=== PATIENT | male | born 1975 | race Caucasian/White ===

== ENCOUNTER 2017-07-13 08:38 | Inpatient (IN) | payer OTHER ==
[2017-07-13] MEDS: MORPHINE SULFATE 4 MG/ML DISP.SYRIN. IV (09:20)
[2017-07-13] MEDS: ONDANSETRON PF 4 MG/2 ML VIAL. IV (09:20)
[2017-07-13 09:29] LABS: BASO % 0 % (0-3); EOS # 0.1 x10^3/uL (0.0-0.7); EOS % 1 % (0-3); HEMATOCRIT 25.8 % (39.0-53.0); LYMPH # 0.6 x10^3/uL (1.0-4.8); LYMPH % 6 % (24-48); MEAN CORPUSCULAR HEMOGLOBIN 30 pg (25-35); MEAN CORPUSCULAR HGB CONC 35 g/dL (31-37); MEAN CORPUSCULAR VOLUME 86 fL (79-100); MONO # 0.8 x10^3/uL (0.0-1.1); MONO % 7 % (0-9); NEUT # 8.8 x10^3uL (1.8-7.7); NEUT % 85 % (31-73); PLATELET COUNT 590 x10^3/uL (140-400); RED BLOOD COUNT 2.99 x10^6/uL (4.30-5.70); RED CELL DISTRIBUTION WIDTH 15.1 % (11.5-14.5); WHITE BLOOD COUNT 10.3 x10^3/uL (4.0-11.0)
[2017-07-13 09:31] LABS: ADD MAN DIFF? YES; ANION GAP 9 (6-14); BLOOD UREA NITROGEN 13 mg/dL (8-26); BUN/CREATININE RATIO 13 (6-20); CARBON DIOXIDE 30 mmol/L (21-32); CHLORIDE 101 mmol/L (98-107); GFR 83.2; GLUCOSE 110 mg/dL (70-99); POTASSIUM 3.4 mmol/L (3.5-5.1); SODIUM 140 mmol/L (136-145)
[2017-07-13 09:36] LABS: ALBUMIN 1.8 g/dL (3.4-5.0); ALBUMIN/GLOBULIN RATIO 0.3 (1.0-1.7); ALK PHOS 144 U/L (46-116); ALT (SGPT) 24 U/L (16-63); AST (SGOT) 23 U/L (15-37); LIPASE 175 U/L (73-393); TOTAL BILIRUBIN 1.1 mg/dL (0.2-1.0)
[2017-07-13 09:39] LABS: TROPONINI < 0.017 ng/mL (0.000-0.055)
[2017-07-13 09:42] LABS: NT-PRO BNP 961 pg/mL (0-124)
[2017-07-13] MEDS ORDERED: CONTRAST GIVEN MC (09:45)
[2017-07-13] MEDS: IOHEXOL 300 MG/ML 100ML VIAL. IV (09:52)
[2017-07-13 10:03] LABS: D-DIMER 5.89 ug/mlFEU (0.00-0.50)
[2017-07-13 10:36] LABS: % BANDS 1 % (0-9); % EOS 2 % (0-5); % LYMPHS 6 % (24-48); % MONOS 8 % (0-10); % SEGS 83 % (35-66)
[2017-07-13 10:37] LABS: PLT ESTIMATE ADEQUATE (ADEQUATE)
[2017-07-13] MEDS: FUROSEMIDE 40 MG/4 ML VIAL. IVP (10:47)
[2017-07-13] MEDS ORDERED: ONDANSETRON PF 4 MG/2 ML VIAL. IV (12:00)
[2017-07-13] MEDS ORDERED: POTASSIUM CHLORIDE 20MEQ 50 ML IV (12:00)
[2017-07-13] MEDS: MORPHINE SULFATE 2 MG/ML DISP.SYRIN. IV ×6 (12:27→23:53)
[2017-07-13] MEDS: DEXTROSE 5% IV (12:39)
[2017-07-13] MEDS: POTASSIUM CHLORIDE IV (12:39)
[2017-07-13] MEDS ORDERED: PNEUMOCOCCAL VAX SCREEN BY RX. MC (13:45)
[2017-07-14] MEDS: MORPHINE SULFATE 2 MG/ML DISP.SYRIN. IV ×7 (02:11→15:47)
[2017-07-14 05:15] LABS: ADD MAN DIFF? NO
[2017-07-14 05:29] LABS: BASO % 0 % (0-3); EOS # 0.2 x10^3/uL (0.0-0.7); EOS % 2 % (0-3); HEMATOCRIT 23.7 % (39.0-53.0); HEMOGLOBIN 7.9 g/dL (13.0-17.5); LYMPH # 0.5 x10^3/uL (1.0-4.8); LYMPH % 6 % (24-48); MEAN CORPUSCULAR HEMOGLOBIN 29 pg (25-35); MEAN CORPUSCULAR HGB CONC 33 g/dL (31-37); MEAN CORPUSCULAR VOLUME 88 fL (79-100); MONO # 0.7 x10^3/uL (0.0-1.1); MONO % 8 % (0-9); NEUT % 85 % (31-73); PLATELET COUNT 538 x10^3/uL (140-400); RED CELL DISTRIBUTION WIDTH 15.2 % (11.5-14.5); WHITE BLOOD COUNT 9.4 x10^3/uL (4.0-11.0)
[2017-07-14 05:57] LABS: ANION GAP 8 (6-14); BLOOD UREA NITROGEN 15 mg/dL (8-26); CALCIUM 7.7 mg/dL (8.5-10.1); CARBON DIOXIDE 30 mmol/L (21-32); CHLORIDE 103 mmol/L (98-107); CREATININE 1.1 mg/dL (0.7-1.3); GFR 74.1; GLUCOSE 117 mg/dL (70-99); POTASSIUM 3.7 mmol/L (3.5-5.1); SODIUM 141 mmol/L (136-145)
[2017-07-14] MEDS: FUROSEMIDE 20 MG/2 ML VIAL. IVP (08:51)
[2017-07-14] MEDS: POTASSIUM CHLORIDE 20 MEQ TABLET.ER. PO (08:53)
[2017-07-14] MEDS: ACETAMINOPHEN 325 MG TABLET. PO (13:15)
[2017-07-14] MEDS: ONDANSETRON PF 4 MG/2 ML VIAL. IV (13:17)
[2017-07-14] MEDS: HYDROcodone/APAP 5/325MG 1 TAB TABLET PO ×2 (17:53→22:12)
[2017-07-15] MEDS: HYDROcodone/APAP 5/325MG 1 TAB TABLET PO ×5 (02:01→22:08)
[2017-07-15 04:55] LABS: HEMATOCRIT 23.9 % (39.0-53.0); HEMOGLOBIN 7.9 g/dL (13.0-17.5); MEAN CORPUSCULAR HGB CONC 33 g/dL (31-37)
[2017-07-15 06:00] LABS: ANION GAP 8 (6-14); BLOOD UREA NITROGEN 15 mg/dL (8-26); CALCIUM 7.8 mg/dL (8.5-10.1); CARBON DIOXIDE 31 mmol/L (21-32); CHLORIDE 101 mmol/L (98-107); GFR 82.8; GLUCOSE 93 mg/dL (70-99); POTASSIUM 4.6 mmol/L (3.5-5.1); SODIUM 140 mmol/L (136-145)
[2017-07-15] MEDS: POTASSIUM CHLORIDE 20 MEQ TABLET.ER. PO (10:21)
[2017-07-15] MEDS: FUROSEMIDE 20 MG TABLET PO (10:22)
[2017-07-15] MEDS: MAGNESIUM HYDROXIDE 2,400 MG/30 ML ORAL.SUSP. PO ×2 (12:46→16:41)
[2017-07-15] MEDS: oxyCODONE IR 5 MG TABLET PO ×2 (12:46→19:20)
[2017-07-15] MEDS ORDERED: POLYETHYLENE GLYCOL 3350 17 GM PACKET. PO (16:45)
[2017-07-15] MEDS: DOCUSATE SODIUM 100 MG CAPSULE. PO (17:00)
[2017-07-15] MEDS: POLYETHYLENE GLYCOL 3350 17 GM PACKET. PO (17:00)
[2017-07-16] MEDS: oxyCODONE IR 5 MG TABLET PO ×4 (02:30→20:18)
[2017-07-16] MEDS: HYDROcodone/APAP 5/325MG 1 TAB TABLET PO ×4 (04:26→22:57)
[2017-07-16 05:53] LABS: ADD MAN DIFF? NO
[2017-07-16 06:19] LABS: INR 1.4 (0.8-1.1); PROTHROMBIN TIME PATIENT 16.4 SEC (11.7-14.0)
[2017-07-16 06:48] LABS: ALBUMIN 1.5 g/dL (3.4-5.0); ALBUMIN/GLOBULIN RATIO 0.3 (1.0-1.7); ALK PHOS 160 U/L (46-116); ALT (SGPT) 23 U/L (16-63); ANION GAP 8 (6-14); AST (SGOT) 29 U/L (15-37); BLOOD UREA NITROGEN 15 mg/dL (8-26); BUN/CREATININE RATIO 15 (6-20); CALCIUM 7.5 mg/dL (8.5-10.1); CARBON DIOXIDE 25 mmol/L (21-32); CHLORIDE 99 mmol/L (98-107); GFR 82.8; GLUCOSE 98 mg/dL (70-99); POTASSIUM 4.8 mmol/L (3.5-5.1); SODIUM 132 mmol/L (136-145); TOTAL BILIRUBIN 0.9 mg/dL (0.2-1.0)
[2017-07-16 06:51] LABS: BASO % 0 % (0-3); EOS # 0.1 x10^3/uL (0.0-0.7); EOS % 1 % (0-3); HEMATOCRIT 24.6 % (39.0-53.0); LYMPH # 0.9 x10^3/uL (1.0-4.8); LYMPH % 8 % (24-48); MEAN CORPUSCULAR HEMOGLOBIN 28 pg (25-35); MEAN CORPUSCULAR HGB CONC 32 g/dL (31-37); MEAN CORPUSCULAR VOLUME 86 fL (79-100); MONO # 1.2 x10^3/uL (0.0-1.1); MONO % 10 % (0-9); NEUT % 80 % (31-73); PLATELET COUNT 682 x10^3/uL (140-400); RED BLOOD COUNT 2.87 x10^6/uL (4.30-5.70); RED CELL DISTRIBUTION WIDTH 15.5 % (11.5-14.5); WHITE BLOOD COUNT 11.2 x10^3/uL (4.0-11.0)
[2017-07-16] MEDS: FUROSEMIDE 20 MG TABLET PO (08:14)
[2017-07-16] MEDS: DOCUSATE SODIUM 100 MG CAPSULE. PO (08:14)
[2017-07-16] MEDS: POLYETHYLENE GLYCOL 3350 17 GM PACKET. PO (08:14)
[2017-07-16] MEDS: POTASSIUM CHLORIDE 20 MEQ TABLET.ER. PO (08:14)
[2017-07-16] MEDS: MAGNESIUM HYDROXIDE 2,400 MG/30 ML ORAL.SUSP. PO (13:57)
[2017-07-16] MEDS: CITALOPRAM 20 MG TABLET. PO (15:15)
[2017-07-16] MEDS: LIDOCAINE 2%/EPI 1:100,000 20 ML VIAL. INJ (22:30)
[2017-07-17 00:01] LABS: TYPE AND SCREEN 1 1
[2017-07-17] MEDS: oxyCODONE IR 5 MG TABLET PO ×3 (04:54→21:07)
[2017-07-17 05:14] LABS: ADD MAN DIFF? NO
[2017-07-17 05:23] LABS: BASO % 0 % (0-3); EOS # 0.1 x10^3/uL (0.0-0.7); EOS % 1 % (0-3); HEMATOCRIT 22.9 % (39.0-53.0); HEMOGLOBIN 7.6 g/dL (13.0-17.5); LYMPH # 0.8 x10^3/uL (1.0-4.8); LYMPH % 8 % (24-48); MEAN CORPUSCULAR HEMOGLOBIN 29 pg (25-35); MEAN CORPUSCULAR HGB CONC 33 g/dL (31-37); MEAN CORPUSCULAR VOLUME 86 fL (79-100); MONO # 1.2 x10^3/uL (0.0-1.1); MONO % 11 % (0-9); NEUT # 8.1 x10^3uL (1.8-7.7); NEUT % 79 % (31-73); PLATELET COUNT 662 x10^3/uL (140-400); RED BLOOD COUNT 2.65 x10^6/uL (4.30-5.70); RED CELL DISTRIBUTION WIDTH 15.9 % (11.5-14.5); WHITE BLOOD COUNT 10.2 x10^3/uL (4.0-11.0)
[2017-07-17 05:46] LABS: ALBUMIN 1.6 g/dL (3.4-5.0); ALBUMIN/GLOBULIN RATIO 0.3 (1.0-1.7); ALK PHOS 171 U/L (46-116); ALT (SGPT) 24 U/L (16-63); ANION GAP 8 (6-14); AST (SGOT) 32 U/L (15-37); BLOOD UREA NITROGEN 16 mg/dL (8-26); BUN/CREATININE RATIO 16 (6-20); CALCIUM 8.2 mg/dL (8.5-10.1); CARBON DIOXIDE 28 mmol/L (21-32); CHLORIDE 98 mmol/L (98-107); GFR 82.8; GLUCOSE 92 mg/dL (70-99); POTASSIUM 4.8 mmol/L (3.5-5.1); SODIUM 134 mmol/L (136-145); TOTAL BILIRUBIN 0.9 mg/dL (0.2-1.0); TOTAL PROTEIN 7.2 g/dL (6.4-8.2)
[2017-07-17] MEDS: FUROSEMIDE 20 MG TABLET PO (08:56)
[2017-07-17] MEDS: CITALOPRAM 20 MG TABLET. PO (08:56)
[2017-07-17] MEDS: POTASSIUM CHLORIDE 20 MEQ TABLET.ER. PO (08:56)
[2017-07-17] MEDS: DOCUSATE SODIUM 100 MG CAPSULE. PO (08:56)
[2017-07-17] MEDS: HYDROcodone/APAP 5/325MG 1 TAB TABLET PO ×4 (08:56→22:09)
[2017-07-17] MEDS: POLYETHYLENE GLYCOL 3350 17 GM PACKET. PO (09:00)
[2017-07-17] MEDS: ONDANSETRON PF 4 MG/2 ML VIAL. IV (12:20)
[2017-07-17] MEDS ORDERED: CONTRAST GIVEN MC (13:00)
[2017-07-17] MEDS: FERROUS SULFATE 325 MG TABLET. PO (13:24)
[2017-07-17] MEDS: PHYTONADIONE 10 MG/ML ORAL SOLUTION. PO (13:25)
[2017-07-17] MEDS: IOHEXOL 300 MG/ML 100ML VIAL. IV (14:58)
[2017-07-18] MEDS: HYDROcodone/APAP 5/325MG 1 TAB TABLET PO ×4 (02:56→21:07)
[2017-07-18] MEDS: oxyCODONE IR 5 MG TABLET PO ×3 (04:07→17:58)
[2017-07-18 05:32] LABS: INR 1.3 (0.8-1.1)
[2017-07-18 05:47] LABS: ADD MAN DIFF? NO
[2017-07-18 06:04] LABS: ALBUMIN 1.6 g/dL (3.4-5.0); ALBUMIN/GLOBULIN RATIO 0.3 (1.0-1.7); ALK PHOS 169 U/L (46-116); ALT (SGPT) 29 U/L (16-63); ANION GAP 8 (6-14); AST (SGOT) 53 U/L (15-37); BLOOD UREA NITROGEN 14 mg/dL (8-26); BUN/CREATININE RATIO 16 (6-20); CALCIUM 7.7 mg/dL (8.5-10.1); CARBON DIOXIDE 28 mmol/L (21-32); CHLORIDE 98 mmol/L (98-107); CREATININE 0.9 mg/dL (0.7-1.3); GFR 93.5; GLUCOSE 97 mg/dL (70-99); POTASSIUM 5.2 mmol/L (3.5-5.1); SODIUM 134 mmol/L (136-145); TOTAL BILIRUBIN 0.8 mg/dL (0.2-1.0); TOTAL PROTEIN 6.8 g/dL (6.4-8.2)
[2017-07-18] MEDS: POTASSIUM CHLORIDE 20 MEQ TABLET.ER. PO (08:00)
[2017-07-18 08:20] LABS: BASO # 0.3 x10^3/uL (0.0-0.2); BASO % 3 % (0-3); EOS # 0.1 x10^3/uL (0.0-0.7); EOS % 1 % (0-3); HEMATOCRIT 23.5 % (39.0-53.0); HEMOGLOBIN 7.7 g/dL (13.0-17.5); LYMPH # 0.8 x10^3/uL (1.0-4.8); LYMPH % 8 % (24-48); MEAN CORPUSCULAR HEMOGLOBIN 29 pg (25-35); MEAN CORPUSCULAR HGB CONC 33 g/dL (31-37); MEAN CORPUSCULAR VOLUME 88 fL (79-100); MONO # 1.1 x10^3/uL (0.0-1.1); MONO % 11 % (0-9); NEUT # 7.6 x10^3uL (1.8-7.7); NEUT % 77 % (31-73); PLATELET COUNT 665 x10^3/uL (140-400); RED BLOOD COUNT 2.67 x10^6/uL (4.30-5.70); RED CELL DISTRIBUTION WIDTH 16.3 % (11.5-14.5); WHITE BLOOD COUNT 9.9 x10^3/uL (4.0-11.0)
[2017-07-18] MEDS: DOCUSATE SODIUM 100 MG CAPSULE. PO (09:00)
[2017-07-18] MEDS: FUROSEMIDE 20 MG TABLET PO (09:00)
[2017-07-18] MEDS: POLYETHYLENE GLYCOL 3350 17 GM PACKET. PO (09:00)
[2017-07-18] MEDS: IV NORMAL SALINE 500ML BAG 500 ML IV (10:15)
[2017-07-18] MEDS: CITALOPRAM 20 MG TABLET. PO (10:29)
[2017-07-18] MEDS: FERROUS SULFATE 325 MG TABLET. PO (10:29)
[2017-07-18] MEDS: IV NORMAL SALINE 1000ML BAG 1,000 ML IV ×2 (11:00→21:07)
[2017-07-18] MEDS ORDERED: LIDOCAINE WITH 8.4% SOD BICARB 3 ML DISP.SYRIN. IJ (14:02)
[2017-07-18] MEDS ORDERED: MIDAZOLAM HCL/PF 2 MG/2 ML VIAL. (14:51)
[2017-07-18] MEDS ORDERED: fentaNYL PF VIAL 100 MCG/2 ML VIAL (14:52)
[2017-07-18] MEDS ORDERED: FLUMAZENIL 0.5 MG/5 ML VIAL. IV (14:52)
[2017-07-18] MEDS ORDERED: NALOXONE 0.4 MG/ML VIAL. (14:52)
[2017-07-18] MEDS: fentaNYL PF VIAL 100 MCG/2 ML VIAL IV (15:21)
[2017-07-18] MEDS: LIDOCAINE WITH 8.4% SOD BICARB 3 ML DISP.SYRIN. IJ (15:22)
[2017-07-18] MEDS: MIDAZOLAM HCL/PF 2 MG/2 ML VIAL. IV (15:22)
[2017-07-18 16:44] LABS: ADD MAN DIFF? NO
[2017-07-18 16:50] LABS: BASO % 0 % (0-3); EOS # 0.1 x10^3/uL (0.0-0.7); EOS % 1 % (0-3); HEMATOCRIT 22.7 % (39.0-53.0); HEMOGLOBIN 7.5 g/dL (13.0-17.5); LYMPH # 0.6 x10^3/uL (1.0-4.8); LYMPH % 6 % (24-48); MEAN CORPUSCULAR HEMOGLOBIN 28 pg (25-35); MEAN CORPUSCULAR HGB CONC 33 g/dL (31-37); MEAN CORPUSCULAR VOLUME 85 fL (79-100); MONO # 1.2 x10^3/uL (0.0-1.1); MONO % 12 % (0-9); NEUT % 81 % (31-73); PLATELET COUNT 639 x10^3/uL (140-400); RED BLOOD COUNT 2.67 x10^6/uL (4.30-5.70); WHITE BLOOD COUNT 9.8 x10^3/uL (4.0-11.0)
[2017-07-18 17:25] LABS: INR 1.3 (0.8-1.1); PROTHROMBIN TIME PATIENT 15.7 SEC (11.7-14.0)
[2017-07-18 18:49] LABS: IMMEDIATE SPIN CROSSMATCH 1
[2017-07-18 20:08] LABS: IMMEDIATE SPIN CROSSMATCH 1
[2017-07-19] MEDS: oxyCODONE IR 5 MG TABLET PO ×4 (00:14→22:59)
[2017-07-19] MEDS: HYDROcodone/APAP 5/325MG 1 TAB TABLET PO ×5 (01:44→20:17)
[2017-07-19 04:19] LABS: HEMATOCRIT 21.6 % (39.0-53.0); HEMOGLOBIN 7.1 g/dL (13.0-17.5); MEAN CORPUSCULAR HGB CONC 33 g/dL (31-37)
[2017-07-19 04:53] LABS: ANION GAP 3 (6-14); BLOOD UREA NITROGEN 10 mg/dL (8-26); CALCIUM 7.1 mg/dL (8.5-10.1); CARBON DIOXIDE 29 mmol/L (21-32); CHLORIDE 100 mmol/L (98-107); CREATININE 0.9 mg/dL (0.7-1.3); GFR 93.5; GLUCOSE 112 mg/dL (70-99); POTASSIUM 4.1 mmol/L (3.5-5.1); SODIUM 132 mmol/L (136-145)
[2017-07-19] MEDS: IV NORMAL SALINE 1000ML BAG 1,000 ML IV ×3 (06:19→22:59)
[2017-07-19] MEDS: CITALOPRAM 20 MG TABLET. PO (08:26)
[2017-07-19] MEDS: FERROUS SULFATE 325 MG TABLET. PO (08:26)
[2017-07-19] MEDS: FUROSEMIDE 20 MG TABLET PO (08:26)
[2017-07-19] MEDS: DOCUSATE SODIUM 100 MG CAPSULE. PO (08:27)
[2017-07-19] MEDS: POLYETHYLENE GLYCOL 3350 17 GM PACKET. PO (08:27)
[2017-07-19] MEDS: POTASSIUM CHLORIDE 20 MEQ TABLET.ER. PO (08:27)
[2017-07-19] MEDS: IV NORMAL SALINE 500ML BAG 500 ML IV (09:00)
[2017-07-19 12:17] LABS: BACTERIA,URINE FEW /HPF (0-FEW); BILIRUBIN,URINE NEGATIVE (NEG); CLARITY,URINE CLEAR; COLOR,URINE YELLOW; GLUCOSE,URINE NEGATIVE (NEG); NITRITE,URINE NEGATIVE (NEG); PH,URINE 5.5; PROTEIN,URINE NEGATIVE (NEG-TRACE); RBC,URINE RARE /HPF (0-2); WBC,URINE RARE /HPF (0-4)
[2017-07-20] MEDS: HYDROcodone/APAP 5/325MG 1 TAB TABLET PO ×5 (04:46→21:58)
[2017-07-20 05:38] LABS: HEMATOCRIT 22.9 % (39.0-53.0); HEMOGLOBIN 7.7 g/dL (13.0-17.5); MEAN CORPUSCULAR HGB CONC 34 g/dL (31-37)
[2017-07-20] MEDS: oxyCODONE IR 5 MG TABLET PO ×3 (06:08→17:15)
[2017-07-20 06:16] LABS: ALBUMIN 1.5 g/dL (3.4-5.0); ALBUMIN/GLOBULIN RATIO 0.3 (1.0-1.7); ALK PHOS 154 U/L (46-116); ALT (SGPT) 40 U/L (16-63); ANION GAP 4 (6-14); AST (SGOT) 56 U/L (15-37); BLOOD UREA NITROGEN 7 mg/dL (8-26); BUN/CREATININE RATIO 9 (6-20); CALCIUM 7.7 mg/dL (8.5-10.1); CARBON DIOXIDE 33 mmol/L (21-32); CHLORIDE 100 mmol/L (98-107); CREATININE 0.8 mg/dL (0.7-1.3); GFR 107.1; GLUCOSE 102 mg/dL (70-99); POTASSIUM 5.3 mmol/L (3.5-5.1); SODIUM 137 mmol/L (136-145); TOTAL BILIRUBIN 0.6 mg/dL (0.2-1.0); TOTAL PROTEIN 6.6 g/dL (6.4-8.2)
[2017-07-20] MEDS: POTASSIUM CHLORIDE 20 MEQ TABLET.ER. PO (08:00)
[2017-07-20] MEDS: FERROUS SULFATE 325 MG TABLET. PO (08:41)
[2017-07-20] MEDS: CITALOPRAM 20 MG TABLET. PO (08:41)
[2017-07-20] MEDS: DOCUSATE SODIUM 100 MG CAPSULE. PO (08:42)
[2017-07-20] MEDS: POLYETHYLENE GLYCOL 3350 17 GM PACKET. PO (08:42)
[2017-07-20] MEDS: IV NORMAL SALINE 1000ML BAG 1,000 ML IV ×2 (08:44→21:59)
[2017-07-20] MEDS: FUROSEMIDE 40 MG TABLET. PO ×2 (14:00→14:34)
[2017-07-21] MEDS: oxyCODONE IR 5 MG TABLET PO ×3 (00:35→17:45)
[2017-07-21] MEDS: HYDROcodone/APAP 5/325MG 1 TAB TABLET PO ×3 (04:41→19:54)
[2017-07-21] MEDS: IV NORMAL SALINE 1000ML BAG 1,000 ML IV ×2 (04:42→16:04)
[2017-07-21 06:39] LABS: ANION GAP 6 (6-14); BLOOD UREA NITROGEN 5 mg/dL (8-26); CALCIUM 7.4 mg/dL (8.5-10.1); CARBON DIOXIDE 29 mmol/L (21-32); CHLORIDE 98 mmol/L (98-107); CREATININE 0.7 mg/dL (0.7-1.3); GFR 124.9; GLUCOSE 84 mg/dL (70-99); POTASSIUM 4.3 mmol/L (3.5-5.1); SODIUM 133 mmol/L (136-145)
[2017-07-21] MEDS: POLYETHYLENE GLYCOL 3350 17 GM PACKET. PO (07:34)
[2017-07-21 07:35] LABS: ALBUMIN 1.5 g/dL (3.4-5.0); ANION GAP 7 (6-14); BLOOD UREA NITROGEN 5 mg/dL (8-26); CALCIUM 7.2 mg/dL (8.5-10.1); CARBON DIOXIDE 28 mmol/L (21-32); CHLORIDE 98 mmol/L (98-107); CREATININE 0.7 mg/dL (0.7-1.3); GFR 124.9; GLUCOSE 85 mg/dL (70-99); PHOSPHORUS 4.6 mg/dL (2.6-4.7); POTASSIUM 4.9 mmol/L (3.5-5.1); SODIUM 133 mmol/L (136-145)
[2017-07-21] MEDS: DOCUSATE SODIUM 100 MG CAPSULE. PO (08:48)
[2017-07-21] MEDS: FUROSEMIDE 40 MG TABLET. PO ×2 (08:48→14:11)
[2017-07-21] MEDS: CITALOPRAM 20 MG TABLET. PO (08:48)
[2017-07-21] MEDS: FERROUS SULFATE 325 MG TABLET. PO (08:48)
[2017-07-21] MEDS ORDERED: LOPERAMIDE 2 MG CAPSULE PO (10:30)
[2017-07-21] MEDS ORDERED: PIP/TAZO PER PHARMACY MC (15:15)
[2017-07-21] MEDS: PIPERACILLIN/TAZOBACTAM 3.375 GM in IV NORMAL SALINE 50ML 50 ML IV (16:04)
[2017-07-21] MEDS: LACTOBACILLUS RHAMNOSUS GG 1 CAPSULE. PO (19:54)
[2017-07-22] MEDS: PIPERACILLIN/TAZOBACTAM 3.375 GM in IV NORMAL SALINE 50ML 50 ML IV ×4 (00:07→18:14)
[2017-07-22] MEDS: oxyCODONE IR 5 MG TABLET PO ×4 (00:07→21:02)
[2017-07-22] MEDS: IV NORMAL SALINE 1000ML BAG 1,000 ML IV ×3 (03:15→21:03)
[2017-07-22] MEDS: HYDROcodone/APAP 5/325MG 1 TAB TABLET PO ×3 (05:35→18:52)
[2017-07-22 07:48] LABS: HEMATOCRIT 23.8 % (39.0-53.0); MEAN CORPUSCULAR HGB CONC 34 g/dL (31-37)
[2017-07-22 08:10] LABS: ANION GAP 6 (6-14); BLOOD UREA NITROGEN 4 mg/dL (8-26); CALCIUM 7.5 mg/dL (8.5-10.1); CARBON DIOXIDE 30 mmol/L (21-32); CHLORIDE 97 mmol/L (98-107); CREATININE 0.8 mg/dL (0.7-1.3); GFR 107.1; GLUCOSE 108 mg/dL (70-99); POTASSIUM 3.8 mmol/L (3.5-5.1); SODIUM 133 mmol/L (136-145)
[2017-07-22] MEDS: POLYETHYLENE GLYCOL 3350 17 GM PACKET. PO (09:00)
[2017-07-22] MEDS: FERROUS SULFATE 325 MG TABLET. PO (09:17)
[2017-07-22] MEDS: CITALOPRAM 20 MG TABLET. PO (09:17)
[2017-07-22] MEDS: FUROSEMIDE 40 MG TABLET. PO ×2 (09:17→14:36)
[2017-07-22] MEDS: DOCUSATE SODIUM 100 MG CAPSULE. PO (09:17)
[2017-07-22] MEDS: LACTOBACILLUS RHAMNOSUS GG 1 CAPSULE. PO ×2 (09:17→21:02)
[2017-07-23] MEDS: HYDROcodone/APAP 5/325MG 1 TAB TABLET PO ×5 (00:20→18:50)
[2017-07-23] MEDS: PIPERACILLIN/TAZOBACTAM 3.375 GM in IV NORMAL SALINE 50ML 50 ML IV ×4 (00:20→18:26)
[2017-07-23 05:45] LABS: HEMATOCRIT 24.6 % (39.0-53.0); HEMOGLOBIN 8.1 g/dL (13.0-17.5); MEAN CORPUSCULAR HEMOGLOBIN 27 pg (25-35); MEAN CORPUSCULAR HGB CONC 33 g/dL (31-37); MEAN CORPUSCULAR VOLUME 83 fL (79-100); PLATELET COUNT 600 x10^3/uL (140-400); RED BLOOD COUNT 2.96 x10^6/uL (4.30-5.70); RED CELL DISTRIBUTION WIDTH 16.2 % (11.5-14.5); WHITE BLOOD COUNT 10.2 x10^3/uL (4.0-11.0)
[2017-07-23 06:12] LABS: ALBUMIN 1.5 g/dL (3.4-5.0); ALBUMIN/GLOBULIN RATIO 0.3 (1.0-1.7); ALK PHOS 142 U/L (46-116); ALT (SGPT) 26 U/L (16-63); ANION GAP 6 (6-14); AST (SGOT) 28 U/L (15-37); BLOOD UREA NITROGEN 7 mg/dL (8-26); BUN/CREATININE RATIO 9 (6-20); CALCIUM 7.4 mg/dL (8.5-10.1); CARBON DIOXIDE 28 mmol/L (21-32); CHLORIDE 100 mmol/L (98-107); CREATININE 0.8 mg/dL (0.7-1.3); GFR 107.1; GLUCOSE 95 mg/dL (70-99); POTASSIUM 3.8 mmol/L (3.5-5.1); SODIUM 134 mmol/L (136-145); TOTAL BILIRUBIN 0.5 mg/dL (0.2-1.0)
[2017-07-23 06:14] LABS: INR 1.2 (0.8-1.1); PROTHROMBIN TIME PATIENT 14.9 SEC (11.7-14.0)
[2017-07-23] MEDS: DOCUSATE SODIUM 100 MG CAPSULE. PO (10:53)
[2017-07-23] MEDS: CITALOPRAM 20 MG TABLET. PO (10:53)
[2017-07-23] MEDS: POLYETHYLENE GLYCOL 3350 17 GM PACKET. PO (10:53)
[2017-07-23] MEDS: FUROSEMIDE 40 MG TABLET. PO ×2 (10:53→14:56)
[2017-07-23] MEDS: FERROUS SULFATE 325 MG TABLET. PO (10:54)
[2017-07-23] MEDS: LACTOBACILLUS RHAMNOSUS GG 1 CAPSULE. PO ×2 (10:54→21:23)
[2017-07-23] MEDS: IV NORMAL SALINE 1000ML BAG 1,000 ML IV ×2 (10:57→21:24)
[2017-07-23] MEDS: oxyCODONE IR 5 MG TABLET PO ×2 (11:34→18:26)
[2017-07-23 20:08] LABS: C DIFF BY PCR Negative (Negative)
[2017-07-24] MEDS: oxyCODONE IR 5 MG TABLET PO ×4 (00:10→18:16)
[2017-07-24] MEDS: PIPERACILLIN/TAZOBACTAM 3.375 GM in IV NORMAL SALINE 50ML 50 ML IV ×4 (00:10→18:16)
[2017-07-24] MEDS: HYDROcodone/APAP 5/325MG 1 TAB TABLET PO ×4 (02:02→20:17)
[2017-07-24] MEDS: IV NORMAL SALINE 1000ML BAG 1,000 ML IV ×2 (06:02→18:17)
[2017-07-24 06:25] LABS: BASO # 0.1 x10^3/uL (0.0-0.2); BASO % 1 % (0-3); EOS # 0.1 x10^3/uL (0.0-0.7); EOS % 1 % (0-3); HEMATOCRIT 25.5 % (39.0-53.0); HEMOGLOBIN 8.4 g/dL (13.0-17.5); LYMPH # 0.9 x10^3/uL (1.0-4.8); LYMPH % 8 % (24-48); MEAN CORPUSCULAR HEMOGLOBIN 27 pg (25-35); MEAN CORPUSCULAR HGB CONC 33 g/dL (31-37); MEAN CORPUSCULAR VOLUME 83 fL (79-100); MONO # 1.1 x10^3/uL (0.0-1.1); MONO % 10 % (0-9); NEUT # 9.3 x10^3uL (1.8-7.7); NEUT % 81 % (31-73); PLATELET COUNT 683 x10^3/uL (140-400); RED BLOOD COUNT 3.09 x10^6/uL (4.30-5.70); RED CELL DISTRIBUTION WIDTH 16.5 % (11.5-14.5); WHITE BLOOD COUNT 11.5 x10^3/uL (4.0-11.0)
[2017-07-24 06:35] LABS: INR 1.2 (0.8-1.1); PROTHROMBIN TIME PATIENT 14.9 SEC (11.7-14.0)
[2017-07-24 06:43] LABS: ADD MAN DIFF? YES
[2017-07-24 06:51] LABS: ALBUMIN 1.5 g/dL (3.4-5.0); ALBUMIN/GLOBULIN RATIO 0.3 (1.0-1.7); ALK PHOS 139 U/L (46-116); ALT (SGPT) 25 U/L (16-63); ANION GAP 7 (6-14); AST (SGOT) 32 U/L (15-37); BLOOD UREA NITROGEN 6 mg/dL (8-26); BUN/CREATININE RATIO 9 (6-20); CALCIUM 7.5 mg/dL (8.5-10.1); CARBON DIOXIDE 28 mmol/L (21-32); CHLORIDE 98 mmol/L (98-107); CREATININE 0.7 mg/dL (0.7-1.3); GFR 124.9; GLUCOSE 92 mg/dL (70-99); POTASSIUM 4.2 mmol/L (3.5-5.1); SODIUM 133 mmol/L (136-145); TOTAL BILIRUBIN 0.6 mg/dL (0.2-1.0); TOTAL PROTEIN 7.1 g/dL (6.4-8.2)
[2017-07-24] MEDS: DOCUSATE SODIUM 100 MG CAPSULE. PO (08:34)
[2017-07-24] MEDS: FUROSEMIDE 40 MG TABLET. PO ×2 (08:34→14:38)
[2017-07-24] MEDS: FERROUS SULFATE 325 MG TABLET. PO (08:34)
[2017-07-24] MEDS: CITALOPRAM 20 MG TABLET. PO (08:34)
[2017-07-24] MEDS: LACTOBACILLUS RHAMNOSUS GG 1 CAPSULE. PO ×2 (08:34→21:00)
[2017-07-24] MEDS: POLYETHYLENE GLYCOL 3350 17 GM PACKET. PO (08:35)
[2017-07-24] MEDS ORDERED: LIDOCAINE WITH 8.4% SOD BICARB 3 ML DISP.SYRIN. (09:15)
[2017-07-24] MEDS ORDERED: MIDAZOLAM HCL/PF 2 MG/2 ML VIAL. (09:15)
[2017-07-24] MEDS ORDERED: fentaNYL PF VIAL 100 MCG/2 ML VIAL (09:16)
[2017-07-24] MEDS ORDERED: NALOXONE 0.4 MG/ML VIAL. (09:16)
[2017-07-24] MEDS ORDERED: FLUMAZENIL 0.5 MG/5 ML VIAL. IV (09:16)
[2017-07-24] MEDS: IOHEXOL 300 MG/ML 100ML VIAL. IV (09:30)
[2017-07-24] MEDS ORDERED: CONTRAST GIVEN MC (09:30)
[2017-07-24] MEDS: MIDAZOLAM HCL/PF 2 MG/2 ML VIAL. IV (09:45)
[2017-07-24] MEDS: LIDOCAINE WITH 8.4% SOD BICARB 3 ML DISP.SYRIN. IJ (09:45)
[2017-07-24] MEDS: fentaNYL PF VIAL 100 MCG/2 ML VIAL IV (09:45)
[2017-07-24 10:06] LABS: % EOS 1 % (0-5); % LYMPHS 7 % (24-48); % MONOS 8 % (0-10); % SEGS 84 % (35-66); PLT ESTIMATE INCREASED (ADEQUATE)
[2017-07-24 10:07] LABS: ANISOCYTOSIS SLIGHT; POLYCHROMASIA SLIGHT
[2017-07-25] MEDS: oxyCODONE IR 5 MG TABLET PO ×4 (00:20→21:22)
[2017-07-25] MEDS: HYDROcodone/APAP 5/325MG 1 TAB TABLET PO ×4 (03:58→17:50)
[2017-07-25 05:07] LABS: HEMATOCRIT 25.6 % (39.0-53.0); HEMOGLOBIN 8.5 g/dL (13.0-17.5); MEAN CORPUSCULAR HEMOGLOBIN 27 pg (25-35); MEAN CORPUSCULAR HGB CONC 33 g/dL (31-37); MEAN CORPUSCULAR VOLUME 82 fL (79-100); PLATELET COUNT 615 x10^3/uL (140-400); RED BLOOD COUNT 3.11 x10^6/uL (4.30-5.70); RED CELL DISTRIBUTION WIDTH 16.1 % (11.5-14.5); WHITE BLOOD COUNT 10.9 x10^3/uL (4.0-11.0)
[2017-07-25 05:35] LABS: ALBUMIN 1.5 g/dL (3.4-5.0); ALBUMIN/GLOBULIN RATIO 0.3 (1.0-1.7); ALK PHOS 146 U/L (46-116); ALT (SGPT) 20 U/L (16-63); ANION GAP 6 (6-14); AST (SGOT) 24 U/L (15-37); BLOOD UREA NITROGEN 7 mg/dL (8-26); BUN/CREATININE RATIO 9 (6-20); CALCIUM 7.3 mg/dL (8.5-10.1); CARBON DIOXIDE 28 mmol/L (21-32); CHLORIDE 98 mmol/L (98-107); CREATININE 0.8 mg/dL (0.7-1.3); GFR 107.1; GLUCOSE 95 mg/dL (70-99); POTASSIUM 4.2 mmol/L (3.5-5.1); SODIUM 132 mmol/L (136-145); TOTAL BILIRUBIN 0.6 mg/dL (0.2-1.0); TOTAL PROTEIN 7.1 g/dL (6.4-8.2)
[2017-07-25] MEDS: PIPERACILLIN/TAZOBACTAM 3.375 GM in IV NORMAL SALINE 50ML 50 ML IV ×5 (06:05→23:58)
[2017-07-25] MEDS: LACTOBACILLUS RHAMNOSUS GG 1 CAPSULE. PO ×2 (09:00→21:20)
[2017-07-25] MEDS: POLYETHYLENE GLYCOL 3350 17 GM PACKET. PO (09:00)
[2017-07-25] MEDS: DOCUSATE SODIUM 100 MG CAPSULE. PO (09:00)
[2017-07-25] MEDS: FERROUS SULFATE 325 MG TABLET. PO (09:06)
[2017-07-25] MEDS: CITALOPRAM 20 MG TABLET. PO (09:06)
[2017-07-25] MEDS: FUROSEMIDE 40 MG TABLET. PO ×2 (09:06→15:02)
[2017-07-25] MEDS: IV NORMAL SALINE 1000ML BAG 1,000 ML IV (09:10)
[2017-07-26] MEDS: oxyCODONE IR 5 MG TABLET PO ×3 (04:18→18:05)
[2017-07-26 05:03] LABS: HEMATOCRIT 26.5 % (39.0-53.0); HEMOGLOBIN 8.5 g/dL (13.0-17.5); MEAN CORPUSCULAR HEMOGLOBIN 26 pg (25-35); MEAN CORPUSCULAR HGB CONC 32 g/dL (31-37); MEAN CORPUSCULAR VOLUME 82 fL (79-100); PLATELET COUNT 597 x10^3/uL (140-400); RED BLOOD COUNT 3.24 x10^6/uL (4.30-5.70); RED CELL DISTRIBUTION WIDTH 15.8 % (11.5-14.5); WHITE BLOOD COUNT 11.2 x10^3/uL (4.0-11.0)
[2017-07-26 05:30] LABS: ALBUMIN 1.6 g/dL (3.4-5.0); ALBUMIN/GLOBULIN RATIO 0.3 (1.0-1.7); ALK PHOS 139 U/L (46-116); ALT (SGPT) 20 U/L (16-63); ANION GAP 3 (6-14); AST (SGOT) 25 U/L (15-37); BLOOD UREA NITROGEN 8 mg/dL (8-26); BUN/CREATININE RATIO 10 (6-20); CALCIUM 8.1 mg/dL (8.5-10.1); CARBON DIOXIDE 33 mmol/L (21-32); CHLORIDE 97 mmol/L (98-107); CREATININE 0.8 mg/dL (0.7-1.3); GFR 107.1; GLUCOSE 103 mg/dL (70-99); POTASSIUM 4.4 mmol/L (3.5-5.1); SODIUM 133 mmol/L (136-145); TOTAL BILIRUBIN 0.5 mg/dL (0.2-1.0); TOTAL PROTEIN 7.4 g/dL (6.4-8.2)
[2017-07-26] MEDS: PIPERACILLIN/TAZOBACTAM 3.375 GM in IV NORMAL SALINE 50ML 50 ML IV ×3 (05:56→18:01)
[2017-07-26] MEDS: HYDROcodone/APAP 5/325MG 1 TAB TABLET PO ×4 (05:59→20:04)
[2017-07-26] MEDS: FUROSEMIDE 40 MG TABLET. PO ×2 (08:31→14:20)
[2017-07-26] MEDS: LACTOBACILLUS RHAMNOSUS GG 1 CAPSULE. PO ×2 (08:31→20:04)
[2017-07-26] MEDS: POLYETHYLENE GLYCOL 3350 17 GM PACKET. PO (08:31)
[2017-07-26] MEDS: CITALOPRAM 20 MG TABLET. PO (08:31)
[2017-07-26] MEDS: DOCUSATE SODIUM 100 MG CAPSULE. PO (08:31)
[2017-07-26] MEDS: FERROUS SULFATE 325 MG TABLET. PO (08:31)
[2017-07-27] MEDS: PIPERACILLIN/TAZOBACTAM 3.375 GM in IV NORMAL SALINE 50ML 50 ML IV ×4 (00:11→17:31)
[2017-07-27] MEDS: oxyCODONE IR 5 MG TABLET PO ×2 (00:11→05:17)
[2017-07-27 06:35] LABS: HEMATOCRIT 27.7 % (39.0-53.0); HEMOGLOBIN 9.1 g/dL (13.0-17.5); MEAN CORPUSCULAR HEMOGLOBIN 27 pg (25-35); MEAN CORPUSCULAR HGB CONC 33 g/dL (31-37); MEAN CORPUSCULAR VOLUME 82 fL (79-100); PLATELET COUNT 702 x10^3/uL (140-400); WHITE BLOOD COUNT 10.8 x10^3/uL (4.0-11.0)
[2017-07-27 06:37] LABS: ALBUMIN 1.7 g/dL (3.4-5.0); ALBUMIN/GLOBULIN RATIO 0.3 (1.0-1.7); ALK PHOS 150 U/L (46-116); ALT (SGPT) 24 U/L (16-63); ANION GAP 4 (6-14); AST (SGOT) 30 U/L (15-37); BLOOD UREA NITROGEN 7 mg/dL (8-26); BUN/CREATININE RATIO 9 (6-20); CALCIUM 8.3 mg/dL (8.5-10.1); CARBON DIOXIDE 33 mmol/L (21-32); CHLORIDE 94 mmol/L (98-107); CREATININE 0.8 mg/dL (0.7-1.3); GFR 107.1; GLUCOSE 101 mg/dL (70-99); POTASSIUM 4.3 mmol/L (3.5-5.1); SODIUM 131 mmol/L (136-145); TOTAL BILIRUBIN 0.6 mg/dL (0.2-1.0); TOTAL PROTEIN 8.1 g/dL (6.4-8.2)
[2017-07-27] MEDS: HYDROcodone/APAP 5/325MG 1 TAB TABLET PO ×4 (07:29→21:45)
[2017-07-27] MEDS: POLYETHYLENE GLYCOL 3350 17 GM PACKET. PO (08:34)
[2017-07-27] MEDS: CITALOPRAM 20 MG TABLET. PO (08:35)
[2017-07-27] MEDS: FUROSEMIDE 40 MG TABLET. PO ×2 (08:35→14:37)
[2017-07-27] MEDS: FERROUS SULFATE 325 MG TABLET. PO (08:35)
[2017-07-27] MEDS: DOCUSATE SODIUM 100 MG CAPSULE. PO (08:35)
[2017-07-27] MEDS: LACTOBACILLUS RHAMNOSUS GG 1 CAPSULE. PO ×2 (09:00→21:43)
[2017-07-28] MEDS: HYDROcodone/APAP 5/325MG 1 TAB TABLET PO ×4 (01:48→17:52)
[2017-07-28] MEDS: PIPERACILLIN/TAZOBACTAM 3.375 GM in IV NORMAL SALINE 50ML 50 ML IV ×4 (05:47→17:47)
[2017-07-28] MEDS: IOHEXOL 300 MG/ML 100ML VIAL. IV (08:15)
[2017-07-28] MEDS: IOHEXOL 240 MG/ML 50ML VIAL. PO (08:15)
[2017-07-28] MEDS ORDERED: CONTRAST GIVEN MC (08:30)
[2017-07-28] MEDS: CITALOPRAM 20 MG TABLET. PO (10:12)
[2017-07-28] MEDS: LACTOBACILLUS RHAMNOSUS GG 1 CAPSULE. PO ×2 (10:12→20:54)
[2017-07-28] MEDS: FUROSEMIDE 40 MG TABLET. PO ×2 (10:12→15:57)
[2017-07-28] MEDS: FERROUS SULFATE 325 MG TABLET. PO (10:12)
[2017-07-28] MEDS: DOCUSATE SODIUM 100 MG CAPSULE. PO ×2 (12:51→20:54)
[2017-07-28] MEDS: POLYETHYLENE GLYCOL 3350 17 GM PACKET. PO (12:51)
[2017-07-28] MEDS: oxyCODONE IR 5 MG TABLET PO (15:57)
[2017-07-29] MEDS: PIPERACILLIN/TAZOBACTAM 3.375 GM in IV NORMAL SALINE 50ML 50 ML IV ×4 (00:20→18:15)
[2017-07-29] MEDS: HYDROcodone/APAP 5/325MG 1 TAB TABLET PO ×5 (00:25→21:10)
[2017-07-29] MEDS: DOCUSATE SODIUM 100 MG CAPSULE. PO ×2 (09:00→21:00)
[2017-07-29] MEDS: POLYETHYLENE GLYCOL 3350 17 GM PACKET. PO (09:00)
[2017-07-29 10:40] LABS: INR 1.2 (0.8-1.1); PROTHROMBIN TIME PATIENT 14.8 SEC (11.7-14.0)
[2017-07-29] MEDS: oxyCODONE IR 5 MG TABLET PO ×2 (10:52→17:11)
[2017-07-29] MEDS: FUROSEMIDE 40 MG TABLET. PO ×2 (10:53→17:10)
[2017-07-29] MEDS: CITALOPRAM 20 MG TABLET. PO (10:53)
[2017-07-29] MEDS: LACTOBACILLUS RHAMNOSUS GG 1 CAPSULE. PO ×2 (10:53→21:04)
[2017-07-29] MEDS: FERROUS SULFATE 325 MG TABLET. PO (10:53)
[2017-07-30] MEDS: PIPERACILLIN/TAZOBACTAM 3.375 GM in IV NORMAL SALINE 50ML 50 ML IV ×4 (00:29→18:37)
[2017-07-30] MEDS: oxyCODONE IR 5 MG TABLET PO ×3 (02:32→16:38)
[2017-07-30 05:26] LABS: ADD MAN DIFF? NO
[2017-07-30 05:38] LABS: BASO # 0.1 x10^3/uL (0.0-0.2); BASO % 1 % (0-3); EOS # 0.1 x10^3/uL (0.0-0.7); EOS % 2 % (0-3); HEMATOCRIT 26.8 % (39.0-53.0); LYMPH # 0.9 x10^3/uL (1.0-4.8); LYMPH % 11 % (24-48); MEAN CORPUSCULAR HEMOGLOBIN 27 pg (25-35); MEAN CORPUSCULAR HGB CONC 34 g/dL (31-37); MEAN CORPUSCULAR VOLUME 80 fL (79-100); MONO # 0.8 x10^3/uL (0.0-1.1); MONO % 9 % (0-9); NEUT # 6.7 x10^3uL (1.8-7.7); NEUT % 78 % (31-73); PLATELET COUNT 572 x10^3/uL (140-400); RED BLOOD COUNT 3.36 x10^6/uL (4.30-5.70); RED CELL DISTRIBUTION WIDTH 16.4 % (11.5-14.5); WHITE BLOOD COUNT 8.6 x10^3/uL (4.0-11.0)
[2017-07-30] MEDS: HYDROcodone/APAP 5/325MG 1 TAB TABLET PO ×4 (05:41→21:33)
[2017-07-30 06:03] LABS: ANION GAP 6 (6-14); BLOOD UREA NITROGEN 11 mg/dL (8-26); CALCIUM 8.9 mg/dL (8.5-10.1); CARBON DIOXIDE 30 mmol/L (21-32); CHLORIDE 97 mmol/L (98-107); CREATININE 0.7 mg/dL (0.7-1.3); GFR 124.9; GLUCOSE 102 mg/dL (70-99); POTASSIUM 4.2 mmol/L (3.5-5.1); SODIUM 133 mmol/L (136-145)
[2017-07-30] MEDS: FERROUS SULFATE 325 MG TABLET. PO (08:53)
[2017-07-30] MEDS: FUROSEMIDE 40 MG TABLET. PO ×2 (08:54→16:39)
[2017-07-30] MEDS: CITALOPRAM 20 MG TABLET. PO (08:54)
[2017-07-30] MEDS: LACTOBACILLUS RHAMNOSUS GG 1 CAPSULE. PO ×2 (08:54→21:27)
[2017-07-30] MEDS: DOCUSATE SODIUM 100 MG CAPSULE. PO ×2 (09:00→21:00)
[2017-07-30] MEDS: POLYETHYLENE GLYCOL 3350 17 GM PACKET. PO (09:00)
[2017-07-31] MEDS: PIPERACILLIN/TAZOBACTAM 3.375 GM in IV NORMAL SALINE 50ML 50 ML IV ×4 (00:40→18:03)
[2017-07-31] MEDS: oxyCODONE IR 5 MG TABLET PO ×3 (00:45→18:00)
[2017-07-31 04:42] LABS: ADD MAN DIFF? NO
[2017-07-31] MEDS: HYDROcodone/APAP 5/325MG 1 TAB TABLET PO ×3 (04:48→21:14)
[2017-07-31 04:49] LABS: BASO # 0.1 x10^3/uL (0.0-0.2); BASO % 1 % (0-3); EOS # 0.2 x10^3/uL (0.0-0.7); EOS % 3 % (0-3); HEMATOCRIT 28.3 % (39.0-53.0); HEMOGLOBIN 9.4 g/dL (13.0-17.5); LYMPH # 1.1 x10^3/uL (1.0-4.8); LYMPH % 12 % (24-48); MEAN CORPUSCULAR HEMOGLOBIN 27 pg (25-35); MEAN CORPUSCULAR HGB CONC 33 g/dL (31-37); MEAN CORPUSCULAR VOLUME 80 fL (79-100); MONO # 0.7 x10^3/uL (0.0-1.1); MONO % 8 % (0-9); NEUT # 6.6 x10^3uL (1.8-7.7); NEUT % 76 % (31-73); PLATELET COUNT 573 x10^3/uL (140-400); RED BLOOD COUNT 3.53 x10^6/uL (4.30-5.70); RED CELL DISTRIBUTION WIDTH 16.4 % (11.5-14.5); WHITE BLOOD COUNT 8.6 x10^3/uL (4.0-11.0)
[2017-07-31 05:06] LABS: ANION GAP 7 (6-14); BLOOD UREA NITROGEN 10 mg/dL (8-26); CALCIUM 9.2 mg/dL (8.5-10.1); CARBON DIOXIDE 32 mmol/L (21-32); CHLORIDE 95 mmol/L (98-107); CREATININE 0.9 mg/dL (0.7-1.3); GFR 93.5; GLUCOSE 102 mg/dL (70-99); SODIUM 134 mmol/L (136-145)
[2017-07-31] MEDS: FERROUS SULFATE 325 MG TABLET. PO (08:00)
[2017-07-31] MEDS: FUROSEMIDE 40 MG TABLET. PO ×2 (09:00→14:00)
[2017-07-31] MEDS: LACTOBACILLUS RHAMNOSUS GG 1 CAPSULE. PO ×2 (09:00→21:00)
[2017-07-31] MEDS: POLYETHYLENE GLYCOL 3350 17 GM PACKET. PO (09:00)
[2017-07-31] MEDS: DOCUSATE SODIUM 100 MG CAPSULE. PO ×2 (09:00→21:00)
[2017-07-31] MEDS: CITALOPRAM 20 MG TABLET. PO (09:00)
[2017-07-31] MEDS ORDERED: LIDOCAINE WITH 8.4% SOD BICARB 3 ML DISP.SYRIN. (11:55)
[2017-07-31] MEDS ORDERED: MIDAZOLAM HCL/PF 2 MG/2 ML VIAL. (12:13)
[2017-07-31] MEDS ORDERED: FLUMAZENIL 0.5 MG/5 ML VIAL. IV (12:13)
[2017-07-31] MEDS ORDERED: fentaNYL PF VIAL 100 MCG/2 ML VIAL ×2 (12:13→12:39)
[2017-07-31] MEDS ORDERED: NALOXONE 0.4 MG/ML VIAL. (12:13)
[2017-07-31] MEDS ORDERED: diphenhydrAMINE 50 MG/ML VIAL (12:39)
[2017-07-31] MEDS: diphenhydrAMINE 50 MG/ML VIAL IVP (12:42)
[2017-07-31] MEDS: fentaNYL PF VIAL 100 MCG/2 ML VIAL IV ×2 (12:45→13:15)
[2017-07-31] MEDS: MIDAZOLAM HCL/PF 2 MG/2 ML VIAL. IV ×2 (12:53→13:08)
[2017-07-31] MEDS: LIDOCAINE WITH 8.4% SOD BICARB 3 ML DISP.SYRIN. IJ (14:00)
[2017-07-31] MEDS: MORPHINE SULFATE 2 MG/ML DISP.SYRIN. IV ×3 (14:42→23:01)
[2017-08-01] MEDS: PIPERACILLIN/TAZOBACTAM 3.375 GM in IV NORMAL SALINE 50ML 50 ML IV ×2 (00:32→06:28)
[2017-08-01] MEDS: oxyCODONE IR 5 MG TABLET PO ×4 (01:42→20:03)
[2017-08-01] MEDS: HYDROcodone/APAP 5/325MG 1 TAB TABLET PO ×3 (04:38→16:04)
[2017-08-01] MEDS: FUROSEMIDE 40 MG TABLET. PO ×2 (08:00→14:22)
[2017-08-01] MEDS: LACTOBACILLUS RHAMNOSUS GG 1 CAPSULE. PO ×2 (08:00→20:03)
[2017-08-01] MEDS: POLYETHYLENE GLYCOL 3350 17 GM PACKET. PO (08:01)
[2017-08-01] MEDS: DOCUSATE SODIUM 100 MG CAPSULE. PO ×2 (08:01→20:05)
[2017-08-01] MEDS: FERROUS SULFATE 325 MG TABLET. PO (08:01)
[2017-08-01] MEDS: CITALOPRAM 20 MG TABLET. PO (08:01)
[2017-08-01] MEDS: KETOROLAC 15 MG/ML VIAL. IV (11:43)
[2017-08-01 23:10] LABS: BODY FLUID LDH 152 IU/L (.)
[2017-08-02] MEDS: HYDROcodone/APAP 5/325MG 1 TAB TABLET PO ×4 (00:06→19:44)
[2017-08-02] MEDS: oxyCODONE IR 5 MG TABLET PO ×4 (05:25→22:23)
[2017-08-02] MEDS: DOCUSATE SODIUM 100 MG CAPSULE. PO ×2 (08:51→20:55)
[2017-08-02] MEDS: FUROSEMIDE 40 MG TABLET. PO ×2 (08:51→14:35)
[2017-08-02] MEDS: CITALOPRAM 20 MG TABLET. PO (08:51)
[2017-08-02] MEDS: LACTOBACILLUS RHAMNOSUS GG 1 CAPSULE. PO ×2 (08:51→20:55)
[2017-08-02] MEDS: FERROUS SULFATE 325 MG TABLET. PO (08:51)
[2017-08-02] MEDS: POLYETHYLENE GLYCOL 3350 17 GM PACKET. PO (08:51)
[2017-08-03] MEDS: HYDROcodone/APAP 5/325MG 1 TAB TABLET PO ×3 (01:37→12:44)
[2017-08-03] MEDS: POLYETHYLENE GLYCOL 3350 17 GM PACKET. PO (09:00)
[2017-08-03] MEDS: FUROSEMIDE 40 MG TABLET. PO ×2 (09:24→14:28)
[2017-08-03] MEDS: FERROUS SULFATE 325 MG TABLET. PO (09:24)
[2017-08-03] MEDS: CITALOPRAM 20 MG TABLET. PO (09:24)
[2017-08-03] MEDS: oxyCODONE IR 5 MG TABLET PO ×2 (09:24→14:28)
[2017-08-03] MEDS: LACTOBACILLUS RHAMNOSUS GG 1 CAPSULE. PO (09:24)
[2017-08-03] MEDS: DOCUSATE SODIUM 100 MG CAPSULE. PO (09:24)
[2017-08-03] MEDS: PNEUMOC CONJ VACC 23-VALENT 0.5 ML VIAL. VAX IM (11:27)
== END 2017-08-03 15:30 | disposition home or self-care (01) | DRG 862 ==
LOC: ER 08:38 → ED HOLD 09:15 → 4 NORTH 13:14
PROC: 30233L1 Transfusion of Nonautologous Fresh Plasma into Peripheral Vein, Percutaneous Approach (ICD-10-PCS; 2017-07-17)
PROC: 30233K1 Transfusion of Nonautologous Frozen Plasma into Peripheral Vein, Percutaneous Approach (ICD-10-PCS; 2017-07-17)
PROC: 0W9G30Z Drainage of Peritoneal Cavity with Drainage Device, Percutaneous Approach (ICD-10-PCS; principal; 2017-07-24)
PROC: 0W993ZZ Drainage of Right Pleural Cavity, Percutaneous Approach (ICD-10-PCS; 2017-07-31)
PROC: 0W9F30Z Drainage of Abdominal Wall with Drainage Device, Percutaneous Approach (ICD-10-PCS; 2017-07-31)
PROC: 0W9J3ZZ Drainage of Pelvic Cavity, Percutaneous Approach (ICD-10-PCS; 2017-07-31)
DX: T81.4XXA Infection following a procedure, initial encounter (principal); E43 Unspecified severe protein-calorie malnutrition; I26.99 Other pulmonary embolism without acute cor pulmonale; K65.1 Peritoneal abscess; I50.31 Acute diastolic (congestive) heart failure; K66.1 Hemoperitoneum; K56.7 Ileus, unspecified; E87.5 Hyperkalemia; K91.870 Postprocedural hematoma of a digestive system organ or structure following a digestive system procedure; D68.4 Acquired coagulation factor deficiency; J98.11 Atelectasis; K91.840 Postprocedural hemorrhage of a digestive system organ or structure following a digestive system procedure; Y83.8 Other surgical procedures as the cause of abnormal reaction of the patient, or of later complication, without mention of misadventure at the time of the procedure; E86.9 Volume depletion, unspecified; D64.9 Anemia, unspecified; E66.9 Obesity, unspecified; F10.20 Alcohol dependence, uncomplicated; G47.33 Obstructive sleep apnea (adult) (pediatric); I25.10 Atherosclerotic heart disease of native coronary artery without angina pectoris; K40.90 Unilateral inguinal hernia, without obstruction or gangrene, not specified as recurrent; K70.31 Alcoholic cirrhosis of liver with ascites; F41.9 Anxiety disorder, unspecified; B96.20 Unspecified Escherichia coli [E. coli] as the cause of diseases classified elsewhere; Z90.49 Acquired absence of other specified parts of digestive tract; Z68.32 Body mass index [BMI] 32.0-32.9, adult; Y92.89 Other specified places as the place of occurrence of the external cause
CPT/HCPCS: 32555; 36415; 49406; 71045; 71275; 74174; 74176; 74177; 80048; 80053; 80069; 81001; 83615; 83690; 83880; 83986; 84157; 84484; 85007; 85014; 85018; 85025; 85027; 85379; 85610; 86850; 86900; 86901; 86927; 87045; 87071; 87075; 87186; 87205; 87324; 88112; 88305; 90732; 93005; 93306; 96374; 96375; 97161-GP; 97165-GO; 99152; 99153; 99285; 99285-25; A4215; C1729; C1769; C1894; J1200; J1885; J1940; J2250; J2270; J2405; J2543; J3010; J3490; J7030; J7040; P9017; P9035; Q9966; Q9967

== ENCOUNTER 2017-08-18 10:46 | Emergency (ER) | payer OTHER ==
[2017-08-18 11:46] LABS: ADD MAN DIFF? NO
[2017-08-18] MEDS: ONDANSETRON PF 4 MG/2 ML VIAL. IV ×2 (11:47)
[2017-08-18] MEDS: IV NORMAL SALINE 1000ML BAG 1,000 ML IV ×2 (11:47)
[2017-08-18 11:48] LABS: BASO % 1 % (0-3); EOS # 0.1 x10^3/uL (0.0-0.7); EOS % 2 % (0-3); HEMATOCRIT 28.8 % (39.0-53.0); HEMOGLOBIN 9.6 g/dL (13.0-17.5); LYMPH # 0.9 x10^3/uL (1.0-4.8); LYMPH % 20 % (24-48); MEAN CORPUSCULAR HEMOGLOBIN 26 pg (25-35); MEAN CORPUSCULAR HGB CONC 33 g/dL (31-37); MEAN CORPUSCULAR VOLUME 78 fL (79-100); MONO # 0.6 x10^3/uL (0.0-1.1); MONO % 13 % (0-9); NEUT # 2.9 x10^3uL (1.8-7.7); NEUT % 65 % (31-73); PLATELET COUNT 294 x10^3/uL (140-400); RED BLOOD COUNT 3.68 x10^6/uL (4.30-5.70); RED CELL DISTRIBUTION WIDTH 17.1 % (11.5-14.5); WHITE BLOOD COUNT 4.4 x10^3/uL (4.0-11.0)
[2017-08-18 11:59] LABS: ANION GAP 8 (6-14); BLOOD UREA NITROGEN 11 mg/dL (8-26); BUN/CREATININE RATIO 14 (6-20); CALCIUM 9.1 mg/dL (8.5-10.1); CARBON DIOXIDE 29 mmol/L (21-32); CHLORIDE 99 mmol/L (98-107); CREATININE 0.8 mg/dL (0.7-1.3); GFR 107.1; GLUCOSE 92 mg/dL (70-99); POTASSIUM 3.7 mmol/L (3.5-5.1); SODIUM 136 mmol/L (136-145)
[2017-08-18 12:07] LABS: ALBUMIN 2.9 g/dL (3.4-5.0); ALBUMIN/GLOBULIN RATIO 0.5 (1.0-1.7); ALK PHOS 106 U/L (46-116); ALT (SGPT) 18 U/L (16-63); AST (SGOT) 19 U/L (15-37); LIPASE 84 U/L (73-393); TOTAL BILIRUBIN 0.8 mg/dL (0.2-1.0); TOTAL PROTEIN 8.4 g/dL (6.4-8.2)
== END 2017-08-18 13:45 | disposition home or self-care (01) ==
LOC: ER 10:46
DX: R11.2 Nausea with vomiting, unspecified (principal); R10.84 Generalized abdominal pain; Z90.49 Acquired absence of other specified parts of digestive tract
CPT/HCPCS: 36415; 74022; 80053; 83690; 85025; 96361; 96374; 99285-25; J2405; J7030

== ENCOUNTER → 2019-01-23 | Outpatient (CLI) | payer OTHER ==
[2017-08-18 13:20] VITALS: BP 104/62
[~2019-01-23] MED LIST: CITA40TA5 PO; DICY20TA3 PO; FERR325T14 PO; FURO-69 PO; LORA10TA3 PO; ONDA4TAB10 SL; POTA20TA82 PO; RANI300C PO
--- NOTE | 2019-01-23 17:34 | KCIC ---
STUDY: MRI of the left wrist without contrast INDICATION: Radial sided wrist pain. No known injury. COMPARISON: None. TECHNIQUE: Multiplanar MR imaging of the left wrist performed without the use of intravenous or intra-articular contrast. FINDINGS: Bones/cartilage: No acute fracture. Mild negative ulnar variance with the offset measuring approximately 4 mm. Blunted appearance of the ulnar styloid process may be related to prior trauma. 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 Degenerative joint effusion is present as well with synovitis and some potential small loose bodies. Mild degenerative changes at the triscaphe joint. Potential focal area of chondral loss at the radial articular surface, image 25 series 6. Small cyst within the pisiform. Ligaments: The dorsal and volar bands of the scapholunate ligament are intact. Suspected degenerative perforation of the membranous component. Intact lunotriquetral ligament. Musculotendinous: Marked tenosynovitis of the extensor pollicis longus and the second extensor tendon complex containing the extensor carpi radialis longus and brevis. Thickening of the most proximal visualized aspect of the extensor pollicis longus tendon, image 28 series 5, in keeping with tendinosis. There is some tendinosis of the ECRL and ECRB as well. Minimal extensor carpi ulnaris tendon sheath fluid, image 23 series 5. The flexor tendons are intact. TFCC: No full-thickness tear identified. Miscellaneous: Small distal radioulnar joint effusion as well as fluid within the pisotriquetral recess. Small ganglion cyst versus extension of joint fluid just distal to the pisiform. IMPRESSION: 1. Findings most compatible with marked distal intersection tenosynovitis of the wrist involving the crossover of the extensor pollicis brevis with the ECRL and ECRB. Also noted is tendinosis of the proximal aspect of the visualized EPL as well as some tendinosis of both the ECRL and ECRB. Correlate for a history repetitive stress that could place the patient at risk for such a finding. If no such history is elicited, an autoimmune condition such as rheumatoid arthritis or SLE could predispose to this condition. 2. 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 Scattered less pronounced degenerative changes elsewhere throughout the wrist. 3. Small distal radioulnar joint and pisotriquetral recess effusions. Electronically signed by: MARKY MASON MD (01/23/2019 5:31 PM) [id number]
== END | disposition home or self-care (01) ==
LOC: KCIC MRI 12:56
PROVIDERS: ATTEND Preventive Medicine Occupational Medicine
DX: M19.032 Primary osteoarthritis, left wrist (principal); M25.832 Other specified joint disorders, left wrist; M25.432 Effusion, left wrist; M65.88 Other synovitis and tenosynovitis, other site
CPT/HCPCS: 73221